=== PATIENT | female | born 1995 | race Caucasian/White ===

== ENCOUNTER → 2017-09-19 16:26 | Outpatient (CLI) | payer BC, SELFPAY ==
[2017-09-24 10:25] LABS: Hep B Surface Antibodies Non Reactive (.); V-Zoster Virus Acute IgM < 0.91 index (0.00-0.90)
== END ==
PROVIDERS: Family Provider Family Medicine; PCP Family Medicine; Visit Provider Family Medicine
DX: Z01.84 Encounter for antibody response examination (principal); Z78.9 Other specified health status
CPT/HCPCS: 36415; 86706; 86787

== ENCOUNTER → 2017-09-25 16:14 | Outpatient (CLI) | payer BC, SELFPAY ==
[2017-09-28 08:59] LABS: V-Zoster IgG (Immunity) < 135 index (Immune >165)
== END ==
PROVIDERS: Family Provider Family Medicine; PCP Family Medicine; Visit Provider Family Medicine
DX: Z01.84 Encounter for antibody response examination (principal)
CPT/HCPCS: 86787

== ENCOUNTER → 2017-11-12 16:36 | Outpatient (CLI) | payer BC, SELFPAY ==
[2017-11-12 18:05] LABS: Estradiol 25.1 pg/mL; Follicle Stimulating Hormone 8.7 mIU/mL; Prolactin 7.8 ng/mL; Thyroid Stim Hormone (TSH) 0.03 uIU/mL (0.358-3.74)
[2017-11-15 04:15] LABS: DHEA Sulfate 175.5 ug/dL (110.0-431.7)
[2017-11-15 09:10] LABS: Testosterone Free 1.4 pg/mL (0.0-4.2)
[2017-11-16 15:00] LABS: 17-Hydroxyprogesterone < 10 ng/dL (.)
== END ==
PROVIDERS: Family Provider Family Medicine; PCP Family Medicine; Visit Provider Obstetrics & Gynecology
DX: N91.4 Secondary oligomenorrhea (principal)
CPT/HCPCS: 36415; 82627; 82670; 83001; 83498; 84146; 84402; 84443; 82626

== ENCOUNTER → 2017-11-14 15:08 | Outpatient (CLI) | payer BC, SELFPAY ==
[2017-11-14 16:17] LABS: T4 Free Direct 1.02 ng/dL (0.76-1.46)
== END ==
PROVIDERS: Family Provider Family Medicine; PCP Family Medicine; Visit Provider Obstetrics & Gynecology
DX: E05.90 Thyrotoxicosis, unspecified without thyrotoxic crisis or storm (principal)
CPT/HCPCS: 84439

== ENCOUNTER → 2017-12-12 15:07 | Outpatient (CLI) | payer BC, SELFPAY ==
[2017-12-12 18:17] LABS: Free T3 2.1 pg/mL (2.18-3.98); T4 Free Direct 0.88 ng/dL (0.76-1.46); Thyroid Stim Hormone (TSH) 3.95 uIU/mL (0.358-3.74)
== END ==
PROVIDERS: Family Provider Family Medicine; PCP Family Medicine; Visit Provider Family Medicine
DX: E05.90 Thyrotoxicosis, unspecified without thyrotoxic crisis or storm (principal)
CPT/HCPCS: 36415; 84439; 84443; 84481

== ENCOUNTER → 2017-12-31 15:17 | Outpatient (CLI) | payer BC, SELFPAY ==
[2018-01-04 07:08] LABS: QNTFERON TB Ag Minus Nil Value < 0 IU/mL (.); QNTFERON TB Ag Value 0.06 IU/mL (.); QNTFERON TB Mitogen Value > 10.00 IU/mL (.); QNTFERON TB Nil Value 0.08 IU/mL (.)
[2018-01-04 10:44] LABS: QNTIFERON TB Gold Negative (Negative)
== END ==
PROVIDERS: Family Provider Family Medicine; PCP Family Medicine; Visit Provider Family Medicine
DX: Z11.1 Encounter for screening for respiratory tuberculosis (principal)
CPT/HCPCS: 86480

== ENCOUNTER → 2019-01-08 13:38 | Outpatient (CLI) | payer BC, SELFPAY ==
[2019-01-12 03:06] LABS: QNTFERON TB Mitogen Value > 10.00 IU/mL (.); QNTFERON TB Nil Value 0.08 IU/mL (.); QNTFERON TB1+ Ag Value 0.14 IU/mL (.); QNTFERON TB2+ Ag Value 0.05 IU/mL (.)
[2019-01-12 11:16] LABS: QNTIFERON TB Positive Criteria Negative (Negative)
== END ==
PROVIDERS: Family Provider Family Medicine; PCP Family Medicine; Referring Provider Family Medicine; Visit Provider Family Medicine
DX: Z11.1 Encounter for screening for respiratory tuberculosis (principal)
CPT/HCPCS: 36415; 86480

== ENCOUNTER → 2019-03-31 17:02 | Outpatient (CLI) | payer BC, SELFPAY ==
[2019-03-31 11:10] VITALS: BMI 21.3
[2019-04-03 15:33] LABS: HPV Reflexed? NOT INDICATED
== END ==
PROVIDERS: Family Provider Family Medicine; PCP Family Medicine; Referring Provider Obstetrics & Gynecology; Visit Provider Obstetrics & Gynecology
DX: Z12.4 Encounter for screening for malignant neoplasm of cervix (principal)
CPT/HCPCS: 87624; 88175; G0145

== ENCOUNTER → 2020-03-11 13:47 | Outpatient (CLI) | payer BC, SELFPAY ==
[2020-03-11 11:43] VITALS: BMI 21.3
[2020-03-11 15:43] LABS: Chlamydia Trachomatis by PCR Negative (Negative); Neisserai gonorrhoeae by PCR Negative (Negative); Probe Check PASS; Sample Adequacy Control PASS; Specimen Processing Control PASS
== END ==
PROVIDERS: PCP Family Medicine; Referring Provider Obstetrics & Gynecology; Visit Provider Obstetrics & Gynecology
DX: Z11.3 Encounter for screening for infections with a predominantly sexual mode of transmission (principal); N93.0 Postcoital and contact bleeding
CPT/HCPCS: 87070; 87205; 87491; 87591

== ENCOUNTER → 2022-01-03 | Outpatient (CLI) | payer MEDICAID, SELFPAY ==
[2022-01-04 21:07] LABS: Chlamydia By Nucleic Acid AMP Negative (Negative)
[2022-01-05 13:39] LABS: Gonococcus By Nucleic Acid AMP Negative (Negative)
[2022-01-08 16:41] LABS: HPV Reflexed? NOT INDICATED
== END | disposition home or self-care (01) ==
PROVIDERS: PCP Family Medicine; Referring Provider Nurse Practitioner Women's Health; Visit Provider Nurse Practitioner Women's Health
DX: Z12.4 Encounter for screening for malignant neoplasm of cervix (principal); Z11.3 Encounter for screening for infections with a predominantly sexual mode of transmission
CPT/HCPCS: 87491; 87591; 88175; G0145